=== PATIENT | male | born 1955 | race Caucasian/White ===

== ENCOUNTER → 2016-10-10 | Outpatient (CLI) | payer OTHER ==
[~2016-10-10] MED LIST: CHOL1TAB2; CITA20TA4 PO; GLC/500 PO; HYDR-5688 PO; NRN/300 PO; SILV1CRE73
--- NOTE | 2016-10-10 13:20 | DIAGNOSTIC IMAGING REPORT ---
RIGHT SHOULDER 3 VIEWS HISTORY: RIGHT SHOULDER PAIN Right COMPARISON: None. FINDINGS: There is nondisplaced right humeral neck fracture. The right clavicle is intact. No dislocation. Soft tissues are unremarkable. No radiopaque foreign bodies. IMPRESSION: Nondisplaced right humeral neck fracture. Electronically signed by: Leonel Grant M.D. 10/10/2016 1:19 PM Dictated Date/Time: 10/10/2016 1:18 PM
== END | disposition home or self-care (01) ==
LOC: C.RAD1850 13:06
PROVIDERS: ATTEND Nurse Practitioner Family
DX: S42.291A Other displaced fracture of upper end of right humerus, initial encounter for closed fracture (principal); X58.XXXA Exposure to other specified factors, initial encounter